=== PATIENT | male | born 1945 | race Caucasian/White ===

== ENCOUNTER 2023-05-01 15:47 | Emergency (ER) | payer MEDICARE ==
[~2023-05-01] VITALS: Ht 180.3 cm; Wt 70.8 kg
[2023-05-01 15:52] VITALS: BP 138/77
== END 2023-05-01 17:33 | disposition home or self-care (01) ==
LOC: ER 15:47
DX: S20.211A Contusion of right front wall of thorax, initial encounter (principal); W18.30XA Fall on same level, unspecified, initial encounter
CPT/HCPCS: 71046; 99283-25